=== PATIENT | male | born 1980 | race Caucasian/White ===

== ENCOUNTER 2025-07-04 19:56 | Inpatient (IN) | payer OTHER ==
[~2025-07-04] VITALS: Ht 165.1 cm; Wt 79.4 kg
[2025-07-04 20:00] VITALS: BP 141/95; TEMP 98.5; O2SAT 93
[2025-07-04] MEDS ORDERED: BUPIVACAINE 0.5 % PF 150 MG/30 ML VIAL ONE (20:48)
[2025-07-04] MEDS ORDERED: LIDOCAINE 1%-EPI 1:100,000 20 ML VIAL ONE (20:49)
[2025-07-04] MEDS ORDERED: SUCCINYLCHOLINE CHLORIDE 20 MG/ML VIAL ONE (20:57)
[2025-07-04] MEDS ORDERED: ROCURONIUM BROMIDE 50 MG/5 ML ONE (20:57)
[2025-07-04] MEDS ORDERED: MORPHINE SULFATE INJ 4 MG/ML DISP.SYRIN ONE (20:57)
[2025-07-04] MEDS ORDERED: FENTANYL PF 100MCG/2ML AMPUL ONE ×2 (20:57→22:53)
[2025-07-04] MEDS ORDERED: MAG HYDROX/AL HYDROX/SIMETH 30 ML UDC PO PRN (21:00)
[2025-07-04] MEDS ORDERED: ACETAMINOPHEN 325 MG TABLET PO PRN (21:00)
[2025-07-04] MEDS ORDERED: ONDANSETRON HCL/PF 4 MG/2 ML VIAL IVP PRN (21:00)
[2025-07-04] MEDS ORDERED: ANESTHESIA TRAY IN PYXIS 1 EA TRAY MC ONE (23:21)
[2025-07-05] MEDS: MORPHINE SULFATE INJ 2 MG/ML DISP.SYRIN IV PRN (01:30)
[2025-07-05] MEDS: IV NS 0.9% 1,000 ML IV PRN (01:31)
[2025-07-05 02:00] VITALS: BP_SYST 136; BP_SYST 149; BP_DIAS 86; BP_DIAS 92; TEMP 97.3; O2SAT 99
[2025-07-05] MEDS ORDERED: LISI40TA13 PO (03:59)
[2025-07-05 04:00] VITALS: BP 151/96; TEMP 97.2; O2SAT 99
[2025-07-05] MEDS ORDERED: CEFAZOLIN 1 GM VIAL IV SCH (05:00)
[2025-07-05] MEDS ORDERED: CEFAZOLIN 2 GM ONE (05:23)
[2025-07-05] MEDS: ENOXAPARIN SODIUM 40 MG/0.4 ML DISP.SYRIN SQ ONE (05:30)
[2025-07-05] MEDS: CEFAZOLIN 2 GM in IV D5W 100 ML IV SCH ×2 (05:37→12:49)
[2025-07-05] MEDS ORDERED: ROSU10TA2 PO (07:00)
[2025-07-05 08:03] LABS: PLATELET COUNT (AUTO) 214 K/uL (150-450); RED BLOOD CELL COUNT(AUTO) 4.00 MIL/uL (4.5-6.0); RED CELL DISTRIBUTION WIDTH 13.9 % (11.5-15.0); WHITE BLOOD COUNT (AUTO) 8.5 K/uL (4.3-11.0)
[2025-07-05 08:21] LABS: CALCIUM, SERUM 7.8 mg/dL (8.5-10.1); CREATININE 0.8 mg/dL (0.6-1.3); PHOSPHORUS 3.9 mg/dL (2.5-4.9); SODIUM SERUM 140.0 mmol/L (136-145); UREA NITROGEN, BLOOD 11.0 mg/dL (7-18)
[2025-07-05 08:29] LABS: LDL 76.0 mg/dL (0-99)
[2025-07-05] MEDS ORDERED: NALOXONE HCL 0.4 MG/ML AMPUL IV PRN (09:00)
[2025-07-05] MEDS ORDERED: oxyCODONE IR immediate release 5 MG TABLET PO SCH (09:00)
[2025-07-05] MEDS: LISINOPRIL (20MG) 20 MG TABLET PO SCH (09:05)
[2025-07-05] MEDS: PANTOPRAZOLE 40 MG TABLET.DR PO SCH (09:07)
[2025-07-05] MEDS: MORPHINE SULFATE INJ 4 MG/ML DISP.SYRIN IV PRN (09:53)
[2025-07-05] MEDS: oxyCODONE IR immediate release 5 MG TABLET PO PRN (11:39)
[2025-07-05 12:00] VITALS: BP 134/68; TEMP 97.2; O2SAT 99
[2025-07-05] MEDS ORDERED: CEFAZOLIN 2 GM in IV D5W 100 ML IV SCH (13:00)
[2025-07-05] MEDS: Magnesium 1GM/D5W 100ML PREMIX 100 ML IV SCH (13:48)
[2025-07-05 20:00] VITALS: BP 135/84; TEMP 98.5; O2SAT 97
[2025-07-06 04:00] VITALS: BP 147/90; TEMP 98.1; O2SAT 95
[2025-07-06] MEDS: ENOXAPARIN SODIUM 40 MG/0.4 ML DISP.SYRIN SQ SCH (05:03)
[2025-07-06 07:47] LABS: PLATELET COUNT (AUTO) 199 K/uL (150-450); RED BLOOD CELL COUNT(AUTO) 3.62 MIL/uL (4.5-6.0); RED CELL DISTRIBUTION WIDTH 14.1 % (11.5-15.0); WHITE BLOOD COUNT (AUTO) 5.6 K/uL (4.3-11.0)
[2025-07-06 08:48] LABS: CALCIUM, SERUM 7.7 mg/dL (8.5-10.1); CREATININE 0.6 mg/dL (0.6-1.3); PHOSPHORUS 1.6 mg/dL (2.5-4.9); SODIUM SERUM 140.0 mmol/L (136-145); UREA NITROGEN, BLOOD 7.0 mg/dL (7-18)
[2025-07-06] MEDS ORDERED: CYCLOBENZAPRINE 10 MG TABLET PO PRN (09:00)
[2025-07-06 12:00] VITALS: BP 164/91; TEMP 98.1; O2SAT 95
[2025-07-06] MEDS: K PHOS NEUTRAL 250 MG TABLET PO ONE (16:35)
[2025-07-06 20:00] VITALS: BP 145/96; TEMP 99.1; O2SAT 99
[2025-07-07] MEDS: MAGNESIUM HYDROXIDE 30 ML UDC PO PRN (01:02)
[2025-07-07 04:00] VITALS: BP 153/98; TEMP 98.2; O2SAT 97
[2025-07-07 12:00] VITALS: BP 136/88; TEMP 98; O2SAT 98
[2025-07-08] MEDS ORDERED: CEPH-570 PO (13:45)
== END 2025-07-07 17:50 | disposition home health service (06) | DRG 494 ==
LOC: MEDSG1 19:56
PROVIDERS: ADMIT Nurse Practitioner Family; ATTEND Internal Medicine
PROC: 0QSG35Z Reposition Right Tibia with External Fixation Device, Percutaneous Approach (ICD-10-PCS; principal; 2025-07-04 20:00)
DX: S82.871A Displaced pilon fracture of right tibia, initial encounter for closed fracture (principal); E66.9 Obesity, unspecified; I10 Essential (primary) hypertension; Y93.89 Activity, other specified; W11.XXXA Fall on and from ladder, initial encounter; Y92.009 Unspecified place in unspecified non-institutional (private) residence as the place of occurrence of the external cause; E78.5 Hyperlipidemia, unspecified; R73.03 Prediabetes; Z68.29 Body mass index [BMI] 29.0-29.9, adult
CPT/HCPCS: 36415; 73590-TC; 73610-TC; 73700-TC; 80048-TC; 80061-TC; 82962-TC; 83735-TC; 84100-TC; 85025-TC; 87081-TC; 93926-TC; 97110-TC; 97116-TC; 97530-TC; A4223; A6253; C1713; G0378; J0330; J0690; J1100; J1650; J2270; J2405; J2704; J3010; J3475; J3490; J7030; J7060